=== PATIENT | female | born 1995 | race Caucasian/White ===

== ENCOUNTER 2016-11-06 23:27 | Emergency (ER) | payer SELFPAY ==
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
--- OUTSIDE RECORDS SUMMARY | 2016-11-07 02:10 | XMS REPORT | Continuity of Care Document ---
:1995 Author Organization [facility] ([facility]) Address [address] [place] [address] Phone [phone] Care Team Providers Name Role Phone Cayetano Jamison Primary Care Provider [phone] Source Comments This disclosure is being made pursuant to the Care Everywhere program, applicable federal and state laws, and may not contain all informaitonavailable regarding this patient.[facility] ([facility]) Active Allergies and Adverse Reactions Allergen Noted Date Severity Reactions Comments Sulfadoxine Nausea & Vomiting Current Medications Prescription Sig. Disp. Refills Start Date End Date Status ethinyl apply 1 Patch on the 4 Patch 0 03/06/2010 Active estradiol-norelgestro skin every week. min (ORTHO EVRA) Indications: 150-20 mcg/24 hr patch Contraception FLUoxetine (PROZAC) Take 1 Cap by mouth 30 Cap 1 03/03/2010 Active 20 mg capsule daily. Indications: Depression valACYclovir Take 1 Tab by mouth 30 Tab 1 03/03/2010 Active (VALTREX) 500 mg daily. Indications: tablet Herpes Genitalis benzoyl peroxide 5 % apply topically. 1 g 0 03/03/2010 Active topical gel apply to affected area as directed Indications: Acne Vulgaris polyethylene glycol Take 17 g by mouth 2 1000 g 2 03/13/2010 Active 3350 (MIRALAX) 17 times daily. gram/dose powder Indications: Constipation Active Problems Not on file Social History Tobacco Use Types Packs/Day Years Used Date Never Assessed Last Filed Vital Signs Vital Sign Reading Time Taken Blood Pressure 114/67 03/03/2010 8:48 AM CDT Pulse 76 03/03/2010 8:48 AM CDT Temperature 36 C (96.8 F) 03/03/2010 8:48 AM CDT Respiratory Rate 20 03/03/2010 8:48 AM CDT Height 1.693 m (5' 6.65") 02/24/2010 2:51 PM CDT Weight 88.814 kg (195 lb 12.8 oz) 03/01/2010 11:01 AM CDT Body Mass Index 30.99 03/01/2010 11:01 AM CDT Oxygen Saturation 96% 02/24/2010 1:00 PM CDT Plan of Care Health Maintenance Due Date Last Done Comments Hepatitis B Vaccine (1 of 3 - Primary Series) 1995 HPV Vaccine (1 of 3 - Female/Unknown 3 Dose Series) 2005 Tdap Vaccine 2005 Cervical Cancer Screening 2012 Lipid Disorder Screening 2012 MMR Vaccine 2012 Td Vaccine 2012 Varicella Vaccine (1 of 2 - Adult - No Evidence of 2012 Immunity) Influenza Vaccine: Seasonal (#1) 02/10/2016 Results from Last 3 Months Not on file
--- OUTSIDE RECORDS SUMMARY | 2016-11-07 02:10 | XMS REPORT | Continuity of Care Document ---
:1995 Author Organization [facility] [place] [address] Care Team Providers Name Role Phone Unavailable Primary Care Provider Unavailable Source Comments This disclosure is being made pursuant to the [employer] program and maynot contain all information available regarding this patient.[facility] Active Allergies and Adverse Reactions Not on File Current Medications Be aware that medications may not be up to date as of this document. Alwaysverify current medications with the patient. Not on file Active Problems Not on file Social History Tobacco Use Types Packs/Day Years Used Date Never Assessed Plan of Care Health Maintenance Due Date Last Done Comments HPV Vaccine (9-26YO) (1 of 3 - Female/Unknown 3 Dose 2005 Series) Chlamydia Screening 2010 Retired-Tetanus Vaccine Adult 2013 Retired-INFLUENZA VACCINE 03/12/2015 Pap Smear 2015 Results from Last 3 Months Not on file
[2016-11-07 03:27] LABS: Hematocrit 41.8 % (37.0-47.0); Hemoglobin 14.2 gm/dL (12.5-16.0); Mean Cell Volume 90.5 fl (78-100); Mean Corpuscular Hemoglobin 30.7 pg (27-31); Mean Platelet Volume 11.7 fl (6.0-9.5); Neutrophil # 5.8 K/mm3 (1.3-6.0); Platelet Count 99 K/mm3 (150-450); Red Blood Count 4.62 M/mm3 (4.2-5.4); Red Cell Distribution Width 12.3 % (11.5-14.0); White Blood Count 9.6 K/mm3 (4.0-10.5)
[2016-11-07 03:28] LABS: Urine Bilirubin 1 mg/dl (NEGATIVE); Urine Blood Negative /ul (NEGATIVE); Urine Ketone 15 mg/dL (NEGATIVE); Urine Nitrite Negative (NEGATIVE); Urine Protein 15 mg/dL (NEGATIVE); Urine Urobilinogen Normal (NORMAL); Urine pH 6.5 pH (5.0-7.0)
[2016-11-07 03:34] LABS: Urine Appearance Slightly Cloudy; Urine Color Yellow; Urine RBC None Seen /hpf (0-5); Urine WBC 0-5 /hpf (0-5)
[2016-11-07 03:35] LABS: Urine Bacteria 2+
[2016-11-07 03:42] LABS: Cocaine Ur Negative (NEGATIVE); Urine Barbiturate Negative (NEGATIVE); Urine Benzodiazepines Negative (NEGATIVE); Urine Opiates Negative (NEGATIVE); Urine PCP Negative (NEGATIVE)
[2016-11-07 03:44] LABS: Urine THC Positive (NEGATIVE)
[2016-11-07 03:52] LABS: ALT 21 U/L (19-67); AST 21 U/L (0-48); Albumin * 4.3 gm/dl (3.4-5.0); Alkaline Phosphatase * 78 U/L (50-170); Anion Gap 15.7 mmol/L (6.8-13.8); BUN/Creatinine Ratio 15.4 (9.0-21.6); Bilirubin, Total 0.4 mg/dL (0.0-1.1); Blood Urea Nitrogen 12 mg/dL (3-23); Calcium * 9.6 mg/dL (7.9-10.9); Carbon Dioxide 23.2 mmol/L (24-32.6); Chloride 106 mmol/L (97-106); Glucose * 120 mg/dL (70-110); Potassium 3.9 mmol/L (3.4-4.6); Salicylate 3.6 mg/dL (2.8-20.0); Sodium 141 mmol/L (132-142)
[2016-11-07 13:19] VITALS: BP 125/72
[2016-11-07] MEDS ORDERED: NICOTINE 21 MG PATC TD ONE (13:42)
[2016-11-07] MEDS: NICOTINE 21 MG PATC TD SCH (13:42)
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
== END 2016-11-07 14:44 | disposition home or self-care (01) ==
LOC: ER 23:27
DX: F31.9 Bipolar disorder, unspecified (principal); F15.20 Other stimulant dependence, uncomplicated; R45.851 Suicidal ideations
CPT/HCPCS: 36415; 80053; 80307; 81001; 84443; 84703; 85025; 87086; 93005; 99284; G0480; G0481